=== PATIENT | male | born 1985 | race African-American/Black ===

== ENCOUNTER 2018-10-09 00:55 | Emergency (ER) | payer MEDICAID, OTHER ==
[~2018-10-09] VITALS: Ht 175.3 cm; Wt 86.2 kg
[2018-10-09 01:06] VITALS: BP 134/87
[2018-10-09] MEDS ORDERED: cefTRIAXone SOD 1,000 MG VL IM ONE (03:15)
[2018-10-09] MEDS ORDERED: HYDROcodone-ACET 10/325MG TAB PO ONE (03:15)
[2018-10-09] MEDS ORDERED: methylPREDNISolone SOD SUCC 125 MG/2 ML VL IM ONE (03:15)
== END 2018-10-09 03:26 | disposition home or self-care (01) ==
LOC: ER 00:55
DX: J06.9 Acute upper respiratory infection, unspecified (principal); J02.9 Acute pharyngitis, unspecified
CPT/HCPCS: 96372; 99283; J0696; J2930